=== PATIENT | female | born 1955 | race African-American/Black ===

== ENCOUNTER 2021-03-08 06:37 | Observation (INO) | payer MEDICAID, MEDICARE, OTHER ==
[~2021-03-08] VITALS: Ht 162.6 cm; Wt 59.6 kg
[2021-03-08] MEDS ORDERED: ASPIRIN CHEWABLE 81 MG TABLET. PO ONE (07:00)
[2021-03-08] MEDS ORDERED: IV NORMAL SALINE 1,000ML 1,000 ML IV ONE (07:00)
[2021-03-08] MEDS ORDERED: MECLIZINE 12.5 MG TABLET. PO ONE (07:00)
[2021-03-08] MEDS ORDERED: ASPIRIN 325 MG TABLET PO ONE (07:30)
[2021-03-08 07:32] LABS: BASO % 1 % (0-3); EOS # 0.2 x10^3/uL (0.0-0.7); EOS % 3 % (0-3); HEMATOCRIT 38.2 % (36.0-47.0); HEMOGLOBIN 12.4 g/dL (12.0-15.5); LYMPH # 2.3 x10^3/uL (1.0-4.8); LYMPH % 35 % (24-48); MEAN CORPUSCULAR HEMOGLOBIN 27 pg (25-35); MEAN CORPUSCULAR HGB CONC 32 g/dL (31-37); MEAN CORPUSCULAR VOLUME 82 fL (79-100); MONO # 0.7 x10^3/uL (0.0-1.1); MONO % 10 % (0-9); NEUT # 3.4 x10^3uL (1.8-7.7); NEUT % 51 % (31-73); PLATELET COUNT 122 x10^3/uL (140-400); POTASSIUM ISTAT 3.6 mmol/L (3.5-5.0); RED BLOOD COUNT 4.64 x10^6/uL (3.50-5.40); RED CELL DISTRIBUTION WIDTH 15.5 % (11.5-14.5); WHITE BLOOD COUNT 6.6 x10^3/uL (4.0-11.0)
[2021-03-08 07:33] LABS: HEMOGLOBIN ISTAT 13.3 gm/dL
--- NOTE | 2021-03-08 07:37 | RAD ---
EXAMINATION: Chest radiograph. VIEWS: Single AP view COMPARISON: None INDICATION:65 years, Female, chest pain. FINDINGS: Normal cardiomediastinal silhouette. No focal consolidation. No pleural effusion or pneumothorax. No acute osseous process. IMPRESSION: No acute cardiopulmonary process. Electronically signed by: Yenifer Tejeda MD (03/08/2021 7:34 AM) [facility]
--- NOTE | 2021-03-08 08:11 | PHYS DOC ---
Past History Past Medical History: DVT, High Cholesterol, Hypertension, Other Additional Past Medical Histor: DVT right leg, vertigo Past Surgical History: Hysterectomy, Other Additional Past Surgical Histo: partial hysterectomy, carotid endarterectomy, stent RLE Smoking: Cigarettes, Less than 1pk/day Alcohol Use: Occasionally Drug Use: Marijuana General Adult EDM: Chief Complaint: CHEST PAIN HPI: HPI: 65-year-old female presents via EMS with report of dizziness upon waking this morning. Patient reports sensation she was about to fall out of the bed. Reports the room was spinning. Reports history of prior vertigo but has been several years since she has had any episodes. Patient reports subsequent left chest tightness/discomfort. Patient does have some cardiac risk factors of smoking, high blood pressure, and high cholesterol. Patient does report she takes a baby aspirin daily which she did take this morning. Denies any fever or chills. Denies headache. Reports some associated nausea. Patient reports symptoms have since improved. Review of Systems: Review of Systems: Constitutional: Denies fever or chills Eyes: Denies redness or eye pain HENT: Denies nasal congestion or sore throat Respiratory: Denies cough or shortness of breath Cardiovascular: Denies palpitations; reports left-sided chest discomfort/tightness GI: Denies abdominal pain or vomiting; reports nausea : Denies dysuria or hematuria Musculoskeletal: Denies back pain or joint pain Integument: Denies rash or skin lesions Neurologic: Denies headache, focal weakness or sensory changes; reports dizziness Complete systems were reviewed and found to be within normal limits, except as documented in this note. Current Medications: Current Meds: Current Medications Medications (Trade) Dose Ordered Sig/[facility] Start Time Stop Time Status Last Admin Dose Admin Aspirin (Aspirin Chewable) 243 mg 1X ONCE 03/08/21 07:00 03/08/21 07:05 DC 03/08/21 07:10 243 MG Aspirin (Shazia Aspirin) 325 mg 1X ONCE 03/08/21 07:30 03/08/21 06:58 DC Meclizine HCl (Antivert) 25 mg 1X ONCE 03/08/21 07:00 03/08/21 07:05 DC 03/08/21 07:17 25 MG Sodium Chloride 1,000 ml @ 1,000 mls/hr 1X ONCE 03/08/21 07:00 03/08/21 08:00 DC 03/08/21 07:17 1,000 MLS/HR Allergies: Allergies: Allergies Coded Allergies Type Severity Reaction Last Updated Verified diphenhydramine Allergy Intermediate 03/08/21 Yes Physical Exam: PE: Constitutional: Well developed, well nourished, no acute distress, non-toxic aditi earance HENT: Normocephalic, atraumatic Eyes: PERRL, EOMI, conjunctiva normal, no discharge, no nystagmus noted Neck: Normal range of motion, no tenderness, supple Lungs & Thorax: No respiratory distress, equal chest rise and fall Abdomen: Soft, no tenderness Skin: Warm, dry, no erythema, no rash Back: No tenderness, no CVA tenderness Extremities: No tenderness, ROM intact, no edema Neurologic: Alert and oriented X 3, normal motor function, normal sensory function, no focal deficits noted Psychologic: Affect normal, judgment normal Current Patient Data: Labs: Laboratory Tests Test 03/08/21 07:05 White Blood Count 6.6 x10^3/uL (4.0-11.0) Red Blood Count 4.64 x10^6/uL (3.50-5.40) Hemoglobin 12.4 g/dL (12.0-15.5) POC Hemoglobin 13.3 gm/dL Hematocrit 38.2 % (36.0-47.0) POC Hematocrit 39 % Mean Corpuscular Volume 82 fL (79-100) Mean Corpuscular Hemoglobin 27 pg (25-35) Mean Corpuscular Hemoglobin Concent 32 g/dL (31-37) Red Cell Distribution Width 15.5 % (11.5-14.5) H Platelet Count 122 x10^3/uL (140-400) L Neutrophils (%) (Auto) 51 % (31-73) Lymphocytes (%) (Auto) 35 % (24-48) Monocytes (%) (Auto) 10 % (0-9) H Eosinophils (%) (Auto) 3 % (0-3) Basophils (%) (Auto) 1 % (0-3) Neutrophils # (Auto) 3.4 x10^3uL (1.8-7.7) Lymphocytes # (Auto) 2.3 x10^3/uL (1.0-4.8) Monocytes # (Auto) 0.7 x10^3/uL (0.0-1.1) Eosinophils # (Auto) 0.2 x10^3/uL (0.0-0.7) Basophils # (Auto) 0.0 x10^3/uL (0.0-0.2) POC Sodium 143 mmol/L (135-145) POC Potassium 3.6 mmol/L (3.5-5.0) POC Chloride 105 mmol/L (98-110) POC Total CO2 24 mmol/L (23-32) Anion Gap 19 mmol/L (6-14) H POC Blood Urea Nitrogen 11 mg/dL (8-26) POC Creatinine 0.6 mg/dL (0.5-1.4) Glucose Level 97 mg/dL (60-99) POC Ionized Calcium (Jacey) 1.22 mmol/L (1.13-1.32) POC Troponin I 0.00 ng/ml (<0.08) Vital Signs: Vital Signs Date Time Temp Pulse Resp B/P (MAP) Pulse Ox O2 Delivery O2 Flow Rate FiO2 03/08/21 06:39 97.9 45 18 151/73 (99) 99 Room Air EKG: EKG: @0641 Sinus bradycardia at 45bpm, NO ST elevation, QRS 78ms, QT/QTc 452/393ms, nonspecific t wave inversion III, aVF, and V3-V6 @0746 Sinus bradycardia at 47bpm, NO ST elevation, QRS 80ms, QT/QTc 498/441ms, nonspecific t wave inversion III, aVF, and V3-V6 Radiology/Procedures: Radiology/Procedures: PROCEDURE: CHEST AP ONLY EXAMINATION: Chest radiograph. VIEWS: Single AP view COMPARISON: None INDICATION:65 years, Female, chest pain. FINDINGS: Normal cardiomediastinal silhouette. No focal consolidation. No pleural effusion or pneumothorax. No acute osseous process. IMPRESSION: No acute cardiopulmonary process. Electronically signed by: Yenifer Tejeda MD (03/08/2021 7:34 AM) [facility] Heart Score: C/O Chest Pain: Yes HEART Score for Chest Pain: HEART Score for Chest Pain Response (Comments) Value History Moderately Suspicious 1 ECG Normal 0 Age >45 - < 65 1 Risk Factors >3 Risk Factors or Hx CAD 2 Troponin < Normal Limit 0 Total 4 Risk Factors: Risk Factors: DM, Current or recent (<one month) smoker, HTN, HLP, family history of CAD, obesity. Risk Scores: Score 0 - 3: 2.5% MACE over next 6 weeks - Discharge Home Score 4 - 6: 20.3% MACE over next 6 weeks - Admit for Clinical Observation Score 7 - 10: 72.7% MACE over next 6 weeks - Early Invasive Strategies Course & Med Decision Making: Course & Med Decision Making Pertinent Labs and Imaging studies reviewed. (See chart for details) Patient presents with dizziness which started upon waking this morning. Patient does have a history of vertigo. Symptoms do appear vertiginous in nature however no horizontal nystagmus noted upon patient's arrival to the ER. Trialed meclizine without significant improvement. Patient had also complained of some left sided chest discomfort. Patient does have some cardiac risk factors. EKG x2 with sinus bradycardia. Patient reports that is her normal. Patient neurologically intact. Labs obtained and posted to chart. Initial troponin within normal limits. H&H stable. Patient reports continued dizziness despite use of meclizine. NIHSS 0. HEART score 4. Patient requiring admission for further evaluation and treatment. Discussed with Dr. Diop (hospitalist) who is in agreement with admission to [facility]. Requests consult orders for cardiology and neurology. Discussed findings and plan with patient, who acknowledges understanding and agreement. Jimmy Disclaimer: Jimmy Disclaimer: This electronic medical record was generated, in whole or in part, using a voice recognition dictation system. Departure Departure: Impression: Primary Impression: Dizziness Additional Impression: Chest pain Qualified Codes: R07.9 - Chest pain, unspecified Disposition: ADMITTED INPATIENT Admitting Physician: Maciej Diop Condition: STABLE Referrals: FANNY SHARMA (PCP) NIHSS - ED NIH Stroke Scale: NIH Stroke Scale Response (Comments) Value Level of Consciousness: 0 Alert/Responsive 0 LOC Questions: 0 Answers both correctly 0 LOC Commands: 0 Performs both tasks 0 Best Gaze: 0 Normal 0 Visual: 0 No visual loss 0 Facial Palsy: 0 Normal, symmetrical 0 Motor - Left Arm 0 No drift 0 Motor - Right Arm 0 No drift 0 Motor - Left Leg 0 No drift 0 Motor: Right Leg 0 No drift 0 Limb Ataxia: 0 Absent 0 Sensory: 0 No loss 0 Best Language: 0 Normal 0 Dysathria: 0 Normal 0 Extinction and Inattention: 0 Normal 0 Total 0 ALVAREZHELDER DO Mar 08, 2021 08:11
[2021-03-08 08:24] LABS: BILIRUBIN,URINE NEG (NEG); CLARITY,URINE CLEAR; COLOR,URINE STRAW; GLUCOSE,URINE NEG (NEG)
[2021-03-08 08:25] LABS: BACTERIA,URINE 0 /HPF (0-FEW); NITRITE,URINE NEG (NEG); RBC,URINE 0 /HPF (0-2); SQUAMOUS EPITHELIAL CELL,UR MOD /LPF; UROBILINOGEN,URINE 0.2 mg/dL (0.2 mg/dL)
[2021-03-08] MEDS ORDERED: diazePAM 2 MG TABLET. PO ONE (08:30)
[2021-03-08] MEDS ORDERED: ONDANSETRON PF 4 MG/2 ML VIAL. IVP PRN (08:30)
[2021-03-08 09:42] VITALS: BP 148/80
--- NOTE | 2021-03-08 09:44 | PDOC2 ---
CARDIAC CONSULT DATE OF CONSULT DOS: DATE: 03/08/21 TIME: 09:41 REASON FOR CONSULT Reason for Consult Chest pain REFERRING PHYSICIAN Referring Physician Dr. Mendez SOURCE Source: Chart review, Patient HPI History of Present Illness This is a 65 yo male who presented secondary to dizziness, lightheadedness. Patient reports this began when she woke up this morning. [place] as if she could fall out of bed. Associated with slight nausea. No dizziness, diaphoresis, or shortness of breath. Had brief aching in left chest. Symptoms persisted so she came to the ED for further evaluation and treatment. Has a history of vertigo years ago. Reports symptoms to be similar. Worse with turned head either direction. No recent fevers or illness. Noted to be bradycardic in ED, which prompted this consult. Reports known h/o bradycardia for years. Has worn heart monitor in past. Follow with wood casket assembler at [place]. Had heart cath without intervention a couple of years ago. Additional h/o PAD s/p PROFESSIONAL WRESTLER/stent to RLE. Also carotid disease s/p right carotid endarterectomy. PAST MEDICAL HISTORY Cardiovascular: HTN, hyperipidemia, Other (vertigo, PAD, carotid disease) CENTRAL NERVOUS SYSTEM: CVA Heme/Onc: Other (DVT) PAST SURGICAL HISTORY Past Surgical History: Hysterectomy, Other (PROFESSIONAL WRESTLER/stent to RLE, right carotid endarterectomy ) FAMILY HISTORY Family History: Diabetes, Hypertension SOCIAL HISTORY Smoke: <1 pack per day ALCOHOL: rare Drugs: Marijuana Lives: with Family CURRENT MEDICATIONS Current Medications Current Medications Aspirin (Shazia Aspirin) 325 mg 1X ONCE PO ; Start 03/08/21 at 07:30; Stop 03/08/21 at 06:58; Status DC Sodium Chloride 1,000 ml @ 1,000 mls/hr 1X ONCE IV Last administered on 03/08/21at 07:17; Start 03/08/21 at 07:00; Stop 03/08/21 at 08:00; Status DC Aspirin (Aspirin Chewable) 243 mg 1X ONCE PO Last administered on 03/08/21at 07:10; Start 03/08/21 at 07:00; Stop 03/08/21 at 07:05; Status DC Meclizine HCl (Antivert) 25 mg 1X ONCE PO Last administered on 03/08/21at 07:17; Start 03/08/21 at 07:00; Stop 03/08/21 at 07:05; Status DC Diazepam (Valium) 2 mg 1X ONCE PO Last administered on 03/08/21at 08:37; Start 03/08/21 at 08:30; Stop 03/08/21 at 08:31; Status DC Ondansetron HCl (Zofran) 4 mg PRN Q4HRS PRN IVP NAUSEA/VOMITING; Start 03/08/21 at 08:30; Stop 03/09/21 at 08:29 ALLERGIES Allergies: Coded Allergies: diphenhydramine (Verified Allergy, Intermediate, 03/08/21) ROS Review of Systems 14 point ROS conducted with pertinent positives noted above in HPI PHYSICAL EXAM General: Alert, Oriented X3, Cooperative, No acute distress HEENT: Atraumatic Lungs: Clear to auscultation Heart: Regular rate (SR/SB/SA) Abdomen: Soft Extremities: No edema, Normal pulses Skin: No rashes, No breakdown Neuro: Normal speech, Sensation intact Psych/Mental Status: Mental status NL, Mood NL MUSCULOSKELETAL: Osteoarthritic changes both hands VITALS Vital Signs Vital Signs Date Time Temp Pulse Resp B/P (MAP) Pulse Ox O2 Delivery O2 Flow Rate FiO2 03/08/21 06:39 97.9 45 18 151/73 (99) 99 Room Air LABS LABS Laboratory Tests Test 03/08/21 06:37 03/08/21 07:05 Urine Collection Type Unknown Urine Color Straw Urine Clarity Clear Urine pH 7.0 Urine Specific [place] <=1.005 Urine Protein Neg (NEG-TRACE) Urine Glucose (UA) Neg mg/dL (NEG) Urine Ketones (Stick) Neg mg/dL (NEG) Urine Blood Small (NEG) Urine Nitrite Neg (NEG) Urine Bilirubin Neg (NEG) Urine Urobilinogen Dipstick 0.2 mg/dL (0.2 mg/dL) Urine Leukocyte Esterase Mod (NEG) Urine RBC 0 /HPF (0-2) Urine WBC 1-4 /HPF (0-4) Urine Squamous Epithelial Cells Mod /LPF Urine Bacteria 0 /HPF (0-FEW) White Blood Count 6.6 x10^3/uL (4.0-11.0) Red Blood Count 4.64 x10^6/uL (3.50-5.40) Hemoglobin 12.4 g/dL (12.0-15.5) Bedside Hemoglobin 13.3 gm/dL Hematocrit 38.2 % (36.0-47.0) Bedside Hematocrit 39 % Mean Corpuscular Volume 82 fL (79-100) Mean Corpuscular Hemoglobin 27 pg (25-35) Mean Corpuscular Hemoglobin Concent 32 g/dL (31-37) Red Cell Distribution Width 15.5 % (11.5-14.5) Platelet Count 122 x10^3/uL (140-400) Neutrophils (%) (Auto) 51 % (31-73) Lymphocytes (%) (Auto) 35 % (24-48) Monocytes (%) (Auto) 10 % (0-9) Eosinophils (%) (Auto) 3 % (0-3) Basophils (%) (Auto) 1 % (0-3) Neutrophils # (Auto) 3.4 x10^3uL (1.8-7.7) Lymphocytes # (Auto) 2.3 x10^3/uL (1.0-4.8) Monocytes # (Auto) 0.7 x10^3/uL (0.0-1.1) Eosinophils # (Auto) 0.2 x10^3/uL (0.0-0.7) Basophils # (Auto) 0.0 x10^3/uL (0.0-0.2) Bedside Sodium 143 mmol/L (135-145) Bedside Potassium 3.6 mmol/L (3.5-5.0) Bedside Chloride 105 mmol/L (98-110) Bedside Total CO2 24 mmol/L (23-32) Anion Gap 19 mmol/L (6-14) Bedside Blood Urea Nitrogen 11 mg/dL (8-26) Bedside Creatinine 0.6 mg/dL (0.5-1.4) Glucose Level 97 mg/dL (60-99) Bedside Ionized Calcium (Jacey) 1.22 mmol/L (1.13-1.32) Bedside Troponin I 0.00 ng/ml (<0.08) ASSESSMENT/PLAN Assessment/Plan 1. Dizziness, vertigo. worsened with turning head. No syncope. Orthos negative 2. Sinus bradycardia; known history. Had previous event monitor x2. Lowest 40. No pauses 3. Chest pain, atypical. Initial trop negative. Reports clean heart cath 2 years ago at [facility] 4. PAD s/p PROFESSIONAL WRESTLER/stent to RLE. Follow with [facility] cardiology, Dr. Altamirano 5. Carotid disease s/p right carotid endarterectomy. 6. H/o CVA prior to endarterectomy 7. Hypertension; controlled 8. Hyperlipidemia; statin Recommendations Monitor tele Avoid AV humberto clocking agents TSH Resume secondary prevention measures Obtain records from primary wood casket assembler. Further pending above Supportive care KIAN VARGAS APRN Mar 08, 2021 09:44
[2021-03-08] MEDS ORDERED: ASPI-630 PO (10:01)
[2021-03-08] MEDS ORDERED: CLOP75TA57 PO (10:01)
[2021-03-08 10:08] LABS: ALBUMIN 4.1 g/dL (3.4-5.0); ALBUMIN/GLOBULIN RATIO 1.2 (1.0-1.7); CALCIUM 9.4 mg/dL (8.5-10.1); CREATININE 0.6 mg/dL (0.6-1.0); GFR 122.2; TOTAL BILIRUBIN 0.8 mg/dL (0.2-1.0); TOTAL PROTEIN 7.5 g/dL (6.4-8.2)
[2021-03-08 10:09] LABS: POTASSIUM 3.7 mmol/L (3.5-5.1)
[2021-03-08 10:15] LABS: MAGNESIUM 2.3 mg/dL (1.8-2.4)
[2021-03-08] MEDS ORDERED: CRESTOR20 MG PO (10:33)
[2021-03-08] MEDS ORDERED: AMLO-186 PO (10:33)
[2021-03-08 10:53] LABS: THYROID STIM HORMONE (TSH) 1.566 uIU/mL (0.358-3.740)
[2021-03-08] MEDS ORDERED: amLODIPine BESYLATE 5 MG TABLET PO SCH (14:00)
[2021-03-08] MEDS ORDERED: CLOPIDOGREL BISULFATE 75 MG TABLET PO SCH (14:00)
[2021-03-08] MEDS ORDERED: ASPIRIN CHEWABLE 81 MG TABLET. PO SCH (14:00)
[2021-03-08] MEDS ORDERED: ATORVASTATIN CALCIUM 20 MG TABLET PO SCH (14:00)
--- NOTE | 2021-03-08 14:36 | HP ---
ADMIT DATE: 03/08/2021 HISTORY OF PRESENT ILLNESS: The patient is a 65-year-old -[place] female patient who came to the emergency room complaining of dizziness upon awakening this morning. She also reports sensation that she was about to fall out of the bed. Reports the room was spinning. Reports history of prior vertigo, but has been several years since she last had any episode. The patient reports subsequent left-sided chest tightness, discomfort. The patient does have some cardiac risk factors including smoking, high blood pressure, high cholesterol. She does report she takes a baby aspirin daily for which she did take this morning. Denied any fevers or chills. Denied any headache. Denied any diplopia, tingling, numbness or weakness. She reported her symptoms have some improvement by the time she arrived to the emergency room. She was extensively investigated in the emergency room, has had EKG which showed that she was in sinus bradycardia with a heart rate of 45 beats per minute with no ST segment elevation. Her QRS duration was 78 milliseconds, corrected QT interval was 393. She had T-wave inversion in lead III, aVF and V3 to V6. Her chest x-ray showed normal cardiomediastinal silhouette. No focal consolidation. No pleural effusion or pneumothorax. No acute osseous process. She had had lab work done that included CBC which was unremarkable with normal white cell count, hemoglobin, hematocrit and thrombocytopenia with a platelet count of 122,000. Her chemistry was mostly unremarkable. She had 1 set of troponin, but all her other lab works were within normal range. Her lipase was only 47 and TSH was 1.566. Urinalysis was essentially unremarkable. The patient was admitted with vertigo as well as chest pain. My plan is to do 2 more sets of cardiac enzymes, check her fasting lipid profile, consult the Cardiology team as well as Neurology together with physical and occupational therapy. PAST MEDICAL HISTORY: Significant for hypertension, right carotid artery stenosis, right femoral artery stenosis, history of DVT, hyperlipidemia and multiple TIAs before her carotid artery endarterectomy. PAST SURGICAL HISTORY: Significant for right carotid endarterectomy, right femoral artery stent deployment. She has total abdominal hysterectomy. ALLERGIES: SHE IS ALLERGIC TO DIPHENHYDRAMINE. MEDICATIONS: She is currently on the following medications: She is on Plavix 75 mg once a day, amlodipine 5 mg once a day, aspirin 81 mg once a day and Crestor 20 mg once a day. FAMILY HISTORY: She has 1 sister who is alive and has hypertension and hepatitis C. Three brothers, the youngest brother has coronary artery bypass graft surgery. Her father in his 50s due to myocardial infarction and mother at the age of 63 because of complication of peripheral arterial disease. SOCIAL HISTORY: She is , has a son and a daughter. She smokes on and off, drinks alcohol on and off and smokes marijuana every night at nighttime for her to sleep. She is a retired RV SERVICER. REVIEW OF SYSTEMS: The patient denied any blurring of vision, cataracts, glaucoma or macular degeneration. Denied any earache, tinnitus or sensorineural deafness. Denied any sore throat, sore tongue, toothache, hoarseness of voice or difficulty swallowing. Denied any nausea, vomiting, diarrhea or constipation. Denied any hematemesis, melena or hematochezia. Denied any dysuria, frequency or hematuria. Did have chest pain, but denied any nausea, vomiting, diaphoresis or shortness of breath. PHYSICAL EXAMINATION: GENERAL: On arrival to the emergency room, she looked well and was clearly in no apparent distress. There was no pallor, jaundice, cyanosis or thyromegaly. No jugular distention. No lower limb edema. VITAL SIGNS: Her heart rate was 45, blood pressure 151/73, temperature was 97.9, respiratory rate was 18 and oxygen saturation was 99% on room air. HEAD, EYES, EARS, NOSE AND THROAT: Normocephalic, atraumatic. NECK: Supple. HEART: Showed normal first and second heart sounds. No gallop, rub or murmur. CHEST: Clear to auscultation. No crepitation or rhonchi. ABDOMEN: Distended, soft, nontender. No guarding or rigidity. No organomegaly. All hernial orifices intact. Bowel sounds normal. NEUROLOGIC: She is awake, alert, responding appropriately. All her cranial nerves intact. She has no nystagmus. She moves all extremities without difficulty. She ambulates without assistance or assistive devices; however, she continues to have vertigo with things spinning around whenever she changes position in the bed, leaning forward or stand and walk to the bathroom. ASSESSMENT AND PLAN: My plan is to do 2 more sets of cardiac enzyme. We have already checked her lipid profile showed serum triglycerides of 88, total cholesterol 157, LDL cholesterol 67, VLDL was 17, HDL cholesterol of 73 and the ratio was 2. Her TSH was normal at 1.566. We have consulted the neurologist, trimmer operator three knife as well as physical and occupational therapist. LUCAS DR: Daphne TID: [id number]
[2021-03-08 14:58] VITALS: BP 114/61
--- NOTE | 2021-03-08 16:53 | CARD ---
MR#: [id number] Date of Study: 03/08/2021 Ordering Physician: KIAN VARGAS, Referring Physician: KIAN VARGAS, Tech: Nikki Pro, [facility] APPROVED REPORT EXAM: Two-dimensional and M-mode echocardiogram with Doppler and color Doppler. Other Information Quality : AverageHR: 45bpm INDICATION Chest Pain RISK FACTORS Hypertension Hyperlipidemia Smoking 2D DIMENSIONS Left Atrium(2D)2.5 (1.6-4.0cm)IVSd1.1 (0.7-1.1cm) Aortic Root(2D)2.8 (2.0-3.7cm)LVDd4.4 (3.9-5.9cm) LVOT Diameter1.9 (1.8-2.4cm)PWd1.1 (0.7-1.1cm) LVDs2.3 (2.5-4.0cm)FS (%) 48.0 % SV68.1 mlLVEF(%)79.7 (>50%) Aortic Valve AoV Peak Rafael.165.4cm/sAoV VTI33.6cm AO Peak GR.10.9mmHgLVOT Peak Rafael.127.6cm/s LVOT VTI 25.90cmAO Mean GR.5mmHg JESICA (VMAX)2.74ur1HLD (VTI)2.21cm2 Mitral Valve MV E Ubfbnvcy16.3cm/sMV DECEL CUTV282nj MV A Eptwhitu47.1cm/sE/A Ratio1.1 Pulmonary Valve PV Peak Vdznvaee77.8cm/sPV Peak Grad.3mmHg Tricuspid Valve TR P. Hxbwejog110xv/sRAP [id number] TR Peak Gr.22odQxYJXT12puQv LEFT VENTRICLE The left ventricle is normal size. There is mild concentric left ventricular hypertrophy. The left ve ntricular systolic function is normal and the ejection fraction is within normal range. The Ejection Fraction is 60-65%. There is normal LV segmental wall motion. The left ventricular diastolic function and filling is normal for age. RIGHT VENTRICLE The right ventricle is normal size. There is normal right ventricular wall thickness. The right ventr icular systolic function is normal. ATRIA The left atrium size is normal. The right atrium size is normal. The interatrial septum is intact wit h no evidence for an atrial septal defect or patent foramen ovale as noted on 2-D or Doppler imaging. AORTIC VALVE The aortic valve is normal in structure and function. Doppler and Color Flow revealed no significant aortic regurgitation. There is no significant aortic valvular stenosis. Calculated aortic valve area is 2.2 cm2 with maximum pressure gradient of 11 mmHg and mean pressure gradient of 5 mmHg. MITRAL VALVE The mitral valve is normal in structure and function. There is no evidence of mitral valve prolapse. There is no mitral valve stenosis. Doppler and Color-flow revealed trace mitral regurgitation. TRICUSPID VALVE The tricuspid valve is normal in structure and function. Doppler and Color Flow revealed trace tricus pid regurgitation with an estimated PAP of 33 mmHg. There is no tricuspid valve stenosis. PULMONIC VALVE The pulmonic valve is not well visualized. Doppler and Color Flow revealed trace pulmonic valvular re gurgitation. There is no pulmonic valvular stenosis. GREAT VESSELS The aortic root is normal in size. The IVC is normal in size and collapses >50% with inspiration. PERICARDIAL EFFUSION There is no evidence of significant pericardial effusion. Critical Notification Critical Value: No <Conclusion> The left ventricular systolic function is normal and the ejection fraction is within normal range. Th e Ejection Fraction is 60-65%. There is normal LV segmental wall motion. Signed by : Evan Macias, Electronically Approved : 03/08/2021 16:52:39
[2021-03-08 19:40] VITALS: BP 104/64
[2021-03-08 23:31] VITALS: BP 127/71
[2021-03-09 07:28] VITALS: BP 149/71
--- NOTE | 2021-03-09 08:50 | PDOC ---
CARDIO Progress Notes Date & Time Date of Service DATE: 03/09/21 TIME: 08:48 Time of Evaluation 08:48 Subjective Notes No chest pain, SOA. Dizziness improved. Vitals Vitals Vital Signs Date Time Temp Pulse Resp B/P (MAP) Pulse Ox O2 Delivery O2 Flow Rate FiO2 03/09/21 07:28 43 20 149/71 (97) 100 Room Air 03/08/21 23:31 97.8 Weight Weight [ ] Input and Output I.O. Intake and Output 03/09/21 07:00 Intake Total 1820 ml Balance 1820 ml Intake Oral 820 ml IV Total 1000 ml # Voids 2 Laboratory Labs Laboratory Tests Test 03/08/21 06:37 03/08/21 07:05 03/08/21 14:19 03/08/21 19:11 Urine Collection Type Unknown Urine Color Straw Urine Clarity Clear Urine pH 7.0 Urine Specific Pennock <=1.005 Urine Protein Neg (NEG-TRACE) Urine Glucose (UA) Neg mg/dL (NEG) Urine Ketones (Stick) Neg mg/dL (NEG) Urine Blood Small (NEG) Urine Nitrite Neg (NEG) Urine Bilirubin Neg (NEG) Urine Urobilinogen Dipstick 0.2 mg/dL (0.2 mg/dL) Urine Leukocyte Esterase Mod (NEG) Urine RBC 0 /HPF (0-2) Urine WBC 1-4 /HPF (0-4) Urine Squamous Epithelial Cells Mod /LPF Urine Bacteria 0 /HPF (0-FEW) White Blood Count 6.6 x10^3/uL (4.0-11.0) Red Blood Count 4.64 x10^6/uL (3.50-5.40) Hemoglobin 12.4 g/dL (12.0-15.5) Bedside Hemoglobin 13.3 gm/dL Hematocrit 38.2 % (36.0-47.0) Bedside Hematocrit 39 % Mean Corpuscular Volume 82 fL (79-100) Mean Corpuscular Hemoglobin 27 pg (25-35) Mean Corpuscular Hemoglobin Concent 32 g/dL (31-37) Red Cell Distribution Width 15.5 % (11.5-14.5) Platelet Count 122 x10^3/uL (140-400) Neutrophils (%) (Auto) 51 % (31-73) Lymphocytes (%) (Auto) 35 % (24-48) Monocytes (%) (Auto) 10 % (0-9) Eosinophils (%) (Auto) 3 % (0-3) Basophils (%) (Auto) 1 % (0-3) Neutrophils # (Auto) 3.4 x10^3uL (1.8-7.7) Lymphocytes # (Auto) 2.3 x10^3/uL (1.0-4.8) Monocytes # (Auto) 0.7 x10^3/uL (0.0-1.1) Eosinophils # (Auto) 0.2 x10^3/uL (0.0-0.7) Basophils # (Auto) 0.0 x10^3/uL (0.0-0.2) Bedside Sodium 143 mmol/L (135-145) Sodium Level 144 mmol/L (136-145) Bedside Potassium 3.6 mmol/L (3.5-5.0) Potassium Level 3.7 mmol/L (3.5-5.1) Bedside Chloride 105 mmol/L (98-110) Chloride Level 106 mmol/L (98-107) Carbon Dioxide Level 23 mmol/L (21-32) Bedside Total CO2 24 mmol/L (23-32) Anion Gap 19 mmol/L (6-14) Bedside Blood Urea Nitrogen 11 mg/dL (8-26) Blood Urea Nitrogen 11 mg/dL (7-20) Creatinine 0.6 mg/dL (0.6-1.0) Bedside Creatinine 0.6 mg/dL (0.5-1.4) Estimated GFR (Cockcroft-Gault) 122.2 BUN/Creatinine Ratio 18 (6-20) Glucose Level 97 mg/dL (60-99) Calcium Level 9.4 mg/dL (8.5-10.1) Bedside Ionized Calcium (Jacey) 1.22 mmol/L (1.13-1.32) Magnesium Level 2.3 mg/dL (1.8-2.4) Total Bilirubin 0.8 mg/dL (0.2-1.0) Aspartate Amino Transf (AST/SGOT) 27 U/L (15-37) Alanine Aminotransferase (ALT/SGPT) 38 U/L (14-59) Alkaline Phosphatase 77 U/L (46-116) Creatine Kinase 125 U/L (26-192) Creatine Kinase MB (Mass) 1.3 ng/mL (0.0-3.6) Creatine Kinase MB Relative Index 1.0 % (0-4) Bedside Troponin I 0.00 ng/ml (<0.08) < 0.02 ng/ml (<0.08) QB-Djp-T-Type Natriuretic Peptide 89 pg/mL (0-124) Total Protein 7.5 g/dL (6.4-8.2) Albumin 4.1 g/dL (3.4-5.0) Albumin/Globulin Ratio 1.2 (1.0-1.7) Triglycerides Level 88 mg/dL (0-150) Cholesterol Level 157 mg/dL (0-200) LDL Cholesterol, Calculated 67 mg/dL (0-100) VLDL Cholesterol, Calculated 17 mg/dL (0-40) Non-HDL Cholesterol Calculated 84 mg/dL (0-129) HDL Cholesterol 73 mg/dL (40-60) Cholesterol/HDL Ratio 2.0 Lipase 47 U/L (73-393) Thyroid Stimulating Hormone (TSH) 1.566 uIU/mL (0.358-3.740) Troponin I Quantitative < 0.017 ng/mL (0-0.055) Physical Exams Chest: Symmetric Lungs: Clear to Auscultation Heart: RRR (SR/SB) Abdomen: Soft N/T Extremities: No Edema Neurology: alert, oriented, follow commands Assessment Assessment 1. Dizziness, vertigo. worsened with turning head. No syncope. Orthos negative 2. Sinus bradycardia; known history. Had previous event monitor x2. Lowest 40. No pauses 3. Chest pain, atypical. trop series negative. AMI ruled out. Reports clean heart cath 2 years ago at [facility] [address]. Echo with preserved LV systolic function 4. PAD s/p COMB WINDER/stent to RLE. Follow with [facility] cardiology, Dr. Altamirano 5. Carotid disease s/p right carotid endarterectomy. 6. H/o CVA prior to endarterectomy 7. Hypertension; controlled 8. Hyperlipidemia; statin Recommendations Avoid AV humberto blocking agents Secondary prevention measures including ASA, Plavix, statin No OSH records obtained Outpatient event monitor. Will follow up with primary elementary summer school teacher upon discharge. Supportive care KIAN VARGAS APRN Mar 09, 2021 08:50
[2021-03-09] MEDS ORDERED: CLOPIDOGREL BISULFATE 75 MG TABLET PO SCH (09:00)
[2021-03-09] MEDS ORDERED: ASPIRIN CHEWABLE 81 MG TABLET. PO SCH (09:00)
[2021-03-09] MEDS ORDERED: ATORVASTATIN CALCIUM 20 MG TABLET PO SCH (09:00)
--- NOTE | 2021-03-09 09:32 | DS ---
DATE OF DISCHARGE: 03/09/2021 FINAL DISCHARGE DIAGNOSES: 1. Acute vertigo, resolved. 2. Chest pain, noncardiac. Myocardial ischemia ruled out. 3. Hypertension. 4. Hyperlipidemia. 5. History of deep venous thrombosis. 6. History of vertigo. 7. History of carotid endarterectomy. 8. History of peripheral artery disease with stents. HISTORY AND PHYSICAL: The patient is a 65-year-old female presenting with symptoms of dizziness and left-sided chest pain. She was admitted with vertigo and cardiac evaluation to rule out myocardial infarction. PHYSICAL EXAMINATION: Please see the dictated note. PERTINENT LABORATORY AND X-RAY STUDIES: Admission hemoglobin was 13.3 g/dL, white count 6600. Electrolytes within normal range. Creatinine is 0.6 mg/dL. Three sets of cardiac enzymes were negative for coronary ischemia. Cholesterol panel looks good at 157. TSH was normal. She had a 2D echocardiogram, which showed normal ejection fraction estimated at 65%, normal wall motion and function, no valvular abnormalities. COURSE IN THE HOSPITAL: The patient was admitted, kept at bed rest, vertigo symptoms resolved spontaneously. Home meds were continued including her aspirin and Plavix. Cardiology consultation was obtained. Echocardiogram was done and these were interpreted as normal. She did not have any coronary ischemia. Their recommendations on the chart. By the second hospital day, she was eating breakfast and nausea resolved, dizziness resolved and she was ready for discharge. At this time, reassurance that her echocardiogram and cardiac enzymes were within normal range and that her vertigo symptoms are transient and have improved spontaneously. There were no changes on her home meds. She will continue her amlodipine 5 mg daily, aspirin 81 mg a day, Plavix 75 mg daily and Crestor 20 mg daily. She will follow up with Dr. Edouard as scheduled time. The patient was then discharged from our hospital in stable condition with explicit drug and followup care. RAJNI DR: Layo TID: [id number] CC: Joan Edouard
--- NOTE | 2021-03-09 22:50 | CONS ---
DATE OF CONSULTATION: 03/08/2021 NEURO CONSULTATION REFERRING PHYSICIAN: Dr. Diop. CHIEF COMPLAINT: Acute onset of vertigo. HISTORY OF PRESENT ILLNESS: This is a 65-year-old right-handed -Spanish female was admitted through the Emergency Room after she presented with acute onset of dizziness described as a vertigo with symptoms of spinning of the room. The patient has intermittent nausea, but she denies vomiting, headaches, visual disturbances, chest pain, visual disturbances. The symptoms lasted 1-2 minutes produced by quick changes of her body positions or turning the head to any directions. She also complains of left-sided chest tightness described as discomfort. The patient denies dysphagia, dysarthria, weakness or paresthesia. On arrival to the Emergency Room, the patient was alert and oriented. She continued to have complaints of dizziness. Initial EKG showed the patient was in sinus bradycardia at mid 40s with ST segment elevation. The patient stated her dizziness has been slightly improved over time and now she is able to change her body position without any significant vertigo or other neurological symptoms. PAST MEDICAL HISTORY: Significant for hypertension, right carotid artery stenosis, right femoral artery stenosis, hyperlipidemia, TIAs. PAST SURGICAL HISTORY: Positive for right carotid endarterectomy and right femoral artery stent placement along with total abdominal hysterectomy. SOCIAL HISTORY: The patient is . She has 2 children. She smoked cigarettes and drinks alcohol occasionally. She also smoked marijuana. CURRENT HOME MEDICATIONS: Plavix 75 mg daily, amlodipine 5 mg daily, aspirin 81 mg daily, Crestor 20 mg daily. FAMILY HISTORY: Positive for hypertension, hepatitis C, strong family history of coronary artery disease in her brothers and one of them required a coronary artery bypass graft. Father at age of 52 from myocardial infarction. Mother at age of 63 from peripheral artery disease. ALLERGIES: DIPHENHYDRAMINE. REVIEW OF SYSTEMS: A 12-point review of system was performed as mentioned above in the history of present illness. PHYSICAL EXAMINATION: GENERAL: Well-developed, well-nourished -Spanish female in no acute distress. She weighs 59.6 pounds. VITAL SIGNS: Blood pressure 104/64, respiratory rate 18, temperature 98.5, pulse is 51, oxygen saturation 96% on room air. HEENT: Normocephalic and atraumatic, otherwise unremarkable. NECK: Supple. Negative for carotid bruit, lymphadenopathy or thyromegaly. LUNGS: Clear to A and P. HEART: Regular rate and rhythm, normal S1 and S2. There is no S3, S4 or murmur. ABDOMEN: Soft. Bowel sounds positive. EXTREMITIES: Negative for cyanosis, clubbing or pedal edema. NEUROLOGIC: Mental status: The patient is alert and oriented x 3. Speech is fluent. There is no language dysfunction. Memory, judgment and abstracting thinkings are normal. The patient denies hallucination or delusion. Cranial nerves: Visual hall are full. The pupils are reactive to light and accommodation. Extraocular movements are intact. There is no nystagmus. There is no facial motor or sensory deficits. Hearing is intact bilaterally. The palate is elevated symmetrically. Sternocleidomastoid muscles are powerful bilaterally. The patient shrugs her shoulders symmetrically, protrudes her tongue in the midline without fasciculation or atrophy. Motor: No focal muscle bulk wasting. The tone is normal. The strength is 5/5 throughout. Sensory examination revealed normal pinprick, light touch, vibratory and position senses. Deep tendon reflexes were symmetric and active without pathologic responses. Gait and coordination are normal. LABORATORY DATA: CBC was unremarkable. Chemistry revealed a complete normal metabolic panel. Diagnostic x-ray revealed no acute cardiopulmonary process. IMPRESSION: 1. Acute onset of vertigo induced by quick changes of body positions or turning head to any directions, which has improved over time with normal current neurological examination. 2. Multiple medical problems and transient ischemic attack risk factor includes right carotid artery stenosis requiring endarterectomy, hypertension, hyperlipidemia and smoking. RECOMMENDATIONS: 1. Continue with current management initiated by Dr. Diop. 2. Agree with Cardiology consult for elevated ST segments. 3. Vestibular exercise may alleviate her symptoms, if it becomes recurrent. STEPHY/RAFA DR: STEPHY/deysi TID: [id number]
--- NOTE | 2021-03-10 05:43 | PN ---
SUBJECTIVE: The patient denies any new medical or neurological complaints. She denies dizziness. She eats and drinks well. She walks fine, no problem, with vertigo this morning. OBJECTIVE: GENERAL: Well-developed, well-nourished -Kos[place] female, not in acute distress. VITAL SIGNS: Blood pressure 149/71, respiratory rate 20, pulse is 43, oxygen saturation is 100% on room air and temperature 97.8. HEENT: Normocephalic, atraumatic, otherwise unremarkable. NECK: Supple, negative for carotid bruit, lymphadenopathy or thyromegaly. LUNGS: Clear to A and P. CARDIOVASCULAR: Regular rhythm. Normal S1, S2. There is no S3, S4 or murmur. ABDOMEN: Soft. Bowel sounds positive. No palpable mass, organomegaly, or tenderness. EXTREMITIES: Negative for cyanosis, clubbing or pedal edema. NEUROLOGIC: Normal mental status and intact cranial nerves. There is no focal motor or sensory deficits. Deep tendon reflexes were asymmetric and active without pathologic responses. Gait and coordinations are normal. LABORATORY DATA: CBC revealed white blood cells of 6600, hemoglobin 12.4, hematocrit 38.2, platelet count 122,000. Chemistry reveals sodium of 143, potassium 3.6, chloride 105, CO2 of 24, BUN 11, creatinine 3.6, glucose 97. Troponin level is 0. Lipid profile revealed normal triglyceride and cholesterol. Normal LDL and elevated HDL. Urinalysis is negative for urinary tract infection. IMPRESSION: 1. Acute onset of vertigo--resolved. No recurrence. 2. Sinus bradycardia, rule out cardiac arrhythmia with elevated ST segments. Cardiology is evaluating the patient. 3. Multiple risk factors of transient ischemic attack or stroke including previous history of transient ischemic attack, strong family history of coronary artery disease, hypertension, and smoking. RECOMMENDATION: Continue with current management initiated by Dr. Diop/Dr. Bonilla. Continue with recommendation initiated by cardiology. The patient may need a followup with car parker on outpatient basis and possibly Holter monitoring. The patient is neurologically stable and ready for discharge. STEPHY/RADHA/RYAN DR: Emilia TID: [id number]
--- NOTE | 2021-03-10 06:29 | EKG ---
[facility] ED [facility] [address] [place] [id number] Test Date: 2021-03-08 Test Time: 07:46:58 Pat Name: NASIR LUCAS Department: Room: Gender: F Manager Laundry: ABIGAIL : 1955 Requested By: HELDER ALVAREZ Order Number: [id number] Reading MD: Measurements Intervals Lyman Rate: 47 P: 60 FL: 174 QRS: 45 QRSD: 80 T: -1 QT: 498 QTc: 441 Interpretive Statements SINUS BRADYCARDIA OTHERWISE NORMAL ECG RI6.02 Compared to ECG 03/08/2021 06:41:15 T-wave abnormality no longer present
--- NOTE | 2021-03-10 23:22 | EKG ---
[address] [address] Test Date: 2021-03-08 Test Time: 06:41:15 Pat Name: NASIR LUCAS Department: Room: Gender: F Propagator: : 1955 Requested By: HELDER ALVAREZ Order Number: [id number] Reading MD: Measurements Intervals [place]akey Rate: 45 P: 54 OR: 170 QRS: 32 QRSD: 78 T: -28 QT: 452 QTc: 393 Interpretive Statements SINUS BRADYCARDIA T ABNORMALITY IN INFERIOR LEADS ABNORMAL ECG RI6.02 No previous ECG available for comparison
== END 2021-03-09 10:10 | disposition home or self-care (01) ==
LOC: ER 06:37 → INTOOBSV 08:26 → 1 SOUTH 08:26 → ER 09:23
PROVIDERS: ADMIT Internal Medicine; ATTEND Internal Medicine
DX: R42 Dizziness and giddiness (principal); R07.89 Other chest pain; I10 Essential (primary) hypertension; E78.5 Hyperlipidemia, unspecified; I65.29 Occlusion and stenosis of unspecified carotid artery; I73.9 Peripheral vascular disease, unspecified; F17.210 Nicotine dependence, cigarettes, uncomplicated; D69.6 Thrombocytopenia, unspecified; E78.00 Pure hypercholesterolemia, unspecified; F12.90 Cannabis use, unspecified, uncomplicated; I65.21 Occlusion and stenosis of right carotid artery; N90.3 Dysplasia of vulva, unspecified; R00.1 Bradycardia, unspecified; Z90.710 Acquired absence of both cervix and uterus; Z86.718 Personal history of other venous thrombosis and embolism; Z79.02 Long term (current) use of antithrombotics/antiplatelets; Z79.82 Long term (current) use of aspirin; Z79.899 Other long term (current) drug therapy; Z86.73 Personal history of transient ischemic attack (TIA), and cerebral infarction without residual deficits; Z90.711 Acquired absence of uterus with remaining cervical stump; Z98.62 Peripheral vascular angioplasty status; Z98.890 Other specified postprocedural states; Z95.1 Presence of aortocoronary bypass graft
CPT/HCPCS: 36415; 71045; 80047; 80053; 80061; 81001; 82553; 83690; 83735; 83880; 84443; 84484; 85025; 87086; 93005; 93306; 96360; 99285; 99406; G0378; J7030; G0379

== ENCOUNTER 2021-10-13 10:00 | Emergency (ER) | payer OTHER ==
[~2021-10-13] VITALS: Ht 162.6 cm; Wt 58.0 kg
[~2021-10-13 10:00] MED LIST: AMLO-186 PO; ASPI-630 PO; CLOP75TA57 PO; CRESTOR20 MG PO
[2021-10-13] MEDS ORDERED: IV NORMAL SALINE 1,000ML 1,000 ML IV ONE (10:45)
[2021-10-13 11:19] LABS: BASO # 0.1 x10^3/uL (0.0-0.2); BASO % 2 % (0-3); EOS % 1 % (0-3); HEMATOCRIT 41.5 % (36.0-47.0); HEMOGLOBIN 13.4 g/dL (12.0-15.5); LYMPH # 1.4 x10^3/uL (1.0-4.8); LYMPH % 37 % (24-48); MEAN CORPUSCULAR HEMOGLOBIN 26 pg (25-35); MEAN CORPUSCULAR HGB CONC 32 g/dL (31-37); MEAN CORPUSCULAR VOLUME 81 fL (79-100); MONO # 0.8 x10^3/uL (0.0-1.1); MONO % 22 % (0-9); NEUT # 1.4 x10^3uL (1.8-7.7); NEUT % 38 % (31-73); PLATELET COUNT 112 x10^3/uL (140-400); RED CELL DISTRIBUTION WIDTH 15.3 % (11.5-14.5); WHITE BLOOD COUNT 3.7 x10^3/uL (4.0-11.0)
[2021-10-13 11:28] LABS: CALCIUM 9.1 mg/dL (8.5-10.1); CREATININE 0.7 mg/dL (0.6-1.0); GFR 101.9; POTASSIUM 4.1 mmol/L (3.5-5.1)
--- NOTE | 2021-10-13 11:34 | RAD ---
Single view of the chest. 10/13/2021 10:40 AM Indication: Reason: Bradycardia / Spl. Instructions: / History: Comparison: Chest radiograph March 08, 2021 Findings: Cardiac monitoring device projects over the left heart. Heart size is normal. No pneumothor ax is seen. No pleural effusion is seen. No focal infiltrates are seen. Bony thorax is intact. Mild a ortic calcification noted. IMPRESSION: No radiographic evidence of acute cardiopulmonary process Electronically signed by: Christopher Alegre MD (10/13/2021 11:31 AM) [id number]
[2021-10-13 11:40] LABS: ALBUMIN/GLOBULIN RATIO 1.2 (1.0-1.7); MAGNESIUM 2.3 mg/dL (1.8-2.4); PHOSPHORUS 4.2 mg/dL (2.6-4.7); TOTAL BILIRUBIN 0.4 mg/dL (0.2-1.0); TOTAL PROTEIN 7.4 g/dL (6.4-8.2)
--- NOTE | 2021-10-13 11:46 | RAD ---
CT HEAD/BRAIN WO Date: 10/13/2021 10:40 AM Clinical Indication: Dizziness, headache Comparison: None. Technique: 5 mm axial tomographic images were obtained of the head without contrast. These were view ed on brain and bone windows. One or more of the following dose reduction techniques were utilized: A utomated exposure control (AEC), Adjustment of mA and/or kV according to patient size, Use of iterati ve reconstruction technique such as ASiR, CT scan done according to ALARA and image gently/image morocho ly Findings: Indeterminate hyperdense focus along the dorsal aspect of the cervicomedullary junction. The brain parenchyma is otherwise normal in attenuation. The ventricles are normal in size, shape, an d morphology. The majano-white matter junction is normal. The subarachnoid cisterns are patent. The visualized paranasal sinuses are normal. The visualized portions of the orbits and globes are no rmal. The mastoid air cells are clear. The systems analyst engineer topogram shows no lytic lesion or fracture. Impression: Indeterminate hyperdense focus along the dorsal aspect of the cervicomedullary junction, poorly abraham cterized by CT. Considerations would include intra-axial lesions such as cavernoma, extra-axial struc tures such as choroid plexus, or even a trace amount of acute blood products. Recommend further abraham cterization with contrast-enhanced MRI. Electronically signed by: Russell Fuentes MD (10/13/2021 11:44 AM) [id number]
--- NOTE | 2021-10-13 12:01 | PHYS DOC ---
Past History Past Medical History: DVT, High Cholesterol, Hypertension, Other Additional Past Medical Histor: DVT right leg, vertigo Past Surgical History: Hysterectomy, Other Additional Past Surgical Histo: partial hysterectomy, carotid endarterectomy, stent RLE Smoking: Cigarettes, Less than 1pk/day Alcohol Use: Occasionally Drug Use: Marijuana Adult General Chief Complaint Chief Complaint: HYPERTENSION HPI HPI Patient is a 66-year-old female who presents to the emergency department reporting concerns of high blood pressure today. Patient reports she woke up and took her blood pressure at 730 this morning and noted 207/80, patient reports she had some mild dizziness this morning however reports she has experienced similar dizziness in the past and was told this was vertigo. Patient reports intermittent headaches that have been going on for "quite some time ", reports a 5-6 out of 10 focusing on her right caodaism area, denies any headache at this time. Denies chest pains, chest palpitations, chest or nasal congestion, denies recent fever or chills. Patient does report a history of bradycardia with heart rates in the 30s and 40s, states she has a heart monitor placed by a tassel clipper from [facility] Dr. Aquino, reports she was told 3 weeks ago she requires a pacemaker however has not followed up for this procedure. Patient reports taking amlodipine, rosuvastatin, aspirin, and Plavix. Patient reports a past medical history of carotid endarterectomy, and arterial stent of right lower extremity approximately 2 to 4 years ago by a vascular surgeon at [facility]. Patient denies chest pain, chest discomfort, or chest palpitations, abdominal pain or abdominal discomfort. Denies nausea, vomiting, diarrhea, denies increased urinary frequency or other dysuria. Denies fever chills at home. Denies other physical complaints or physical concerns. Review of Systems Review of Systems Constitutional: Denies fever or chills [] Eyes: Denies change in visual acuity, redness, or eye pain [] HENT: Denies nasal congestion or sore throat [] Respiratory: Denies cough or shortness of breath [] Cardiovascular: No additional information not addressed in HPI [] GI: Denies abdominal pain, nausea, vomiting, bloody stools or diarrhea [] : Denies dysuria or hematuria [] Musculoskeletal: Denies back pain or joint pain [] Integument: Denies rash or skin lesions [] Neurologic: Denies headache, focal weakness or sensory changes [] Endocrine: Denies polyuria or polydipsia [] All other systems were reviewed and found to be within normal limits, except as documented in this note. Current Medications Current Medications Current Medications Medications (Trade) Dose Ordered Sig/Terra Start Time Stop Time Status Last Admin Dose Admin Sodium Chloride 1,000 ml @ 1,000 mls/hr 1X ONCE 10/13/21 10:45 10/13/21 11:44 DC 10/13/21 11:47 1,000 MLS/HR Allergies Allergies Allergies Coded Allergies Type Severity Reaction Last Updated Verified diphenhydramine Allergy Intermediate 10/13/21 Yes Physical Exam Physical Exam Constitutional: Well developed, well nourished, no acute distress, non-toxic appearance. 56-year-old female in no apparent distress. HENT: Normocephalic, atraumatic. Oropharynx moist, pink, no deep tissue infectious process appreciated, bilateral TMs within normal limits. Eyes: Conjunctiva normal, no discharge. Neck: Normal range of motion, no stridor. Cardiovascular: No cyanosis appreciated, distal cap refill less than 2 seconds. Heart rate bradycardic, rate 44 bpm, heart sounds S1-S2 to auscultation. No murmurs appreciated. Lungs & Thorax: Patient is in no respiratory distress, no audible adventitious lung sounds appreciated. Lung sounds clear to auscultation all lung hall. Abdomen: Nontender, no abnormalities noted. Skin: Warm, dry, no erythema, no rash. Back: No tenderness, no deformities. Extremities: No tenderness, no cyanosis, no clubbing, ROM intact, no edema. Neurologic: Alert and oriented X 3, normal motor function, normal sensory function, no focal deficits noted. Psychologic: Affect normal, judgement normal, mood normal. Current Patient Data Vital Signs Vital Signs Date Time Temp Pulse Resp B/P (MAP) Pulse Ox O2 Delivery O2 Flow Rate FiO2 10/13/21 10:10 98.2 42 21 132/68 (89) 99 Room Air Lab Results Laboratory Tests Test 10/13/21 10:27 10/13/21 10:55 Urine Collection Type Unknown Urine Color Straw Urine Clarity Clear Urine pH 6.5 Urine Specific Hoagland 1.010 Urine Protein Neg Urine Glucose (UA) Neg mg/dL Urine Ketones (Stick) Neg mg/dL Urine Blood Small Urine Nitrite Neg Urine Bilirubin Neg Urine Urobilinogen Dipstick 0.2 mg/dL Urine Leukocyte Esterase Mod Urine RBC 1-2 /HPF Urine WBC 1-4 /HPF Urine Squamous Epithelial Cells Many /LPF Urine Amorphous Sediment Present /HPF Urine Bacteria 0 /HPF White Blood Count 3.7 x10^3/uL Red Blood Count 5.10 x10^6/uL Hemoglobin 13.4 g/dL Hematocrit 41.5 % Mean Corpuscular Volume 81 fL Mean Corpuscular Hemoglobin 26 pg Mean Corpuscular Hemoglobin Concent 32 g/dL Red Cell Distribution Width 15.3 % Platelet Count 112 x10^3/uL Neutrophils (%) (Auto) 38 % Lymphocytes (%) (Auto) 37 % Monocytes (%) (Auto) 22 % Eosinophils (%) (Auto) 1 % Basophils (%) (Auto) 2 % Neutrophils # (Auto) 1.4 x10^3uL Lymphocytes # (Auto) 1.4 x10^3/uL Monocytes # (Auto) 0.8 x10^3/uL Eosinophils # (Auto) 0.0 x10^3/uL Basophils # (Auto) 0.1 x10^3/uL Platelet Estimate Adequate Large Platelets Present Giant Platelets Present Target Cells Present Tear Drop Cells Present Ovalocytes Present Sriram Cells Present Sodium Level 142 mmol/L Potassium Level 4.1 mmol/L Chloride Level 105 mmol/L Carbon Dioxide Level 25 mmol/L Anion Gap 12 Blood Urea Nitrogen 12 mg/dL Creatinine 0.7 mg/dL Estimated GFR (Cockcroft-Gault) 101.9 BUN/Creatinine Ratio 17 Glucose Level 87 mg/dL Calcium Level 9.1 mg/dL Phosphorus Level 4.2 mg/dL Magnesium Level 2.3 mg/dL Total Bilirubin 0.4 mg/dL Aspartate Amino Transf (AST/SGOT) 46 U/L Alanine Aminotransferase (ALT/SGPT) 66 U/L Alkaline Phosphatase 82 U/L Troponin I High Sensitivity 7 ng/L IL-Rbw-V-Type Natriuretic Peptide 74 pg/mL Total Protein 7.4 g/dL Albumin 4.0 g/dL Albumin/Globulin Ratio 1.2 Lipase 50 U/L Current Medications Medications (Trade) Dose Ordered Sig/Terra Route PRN Reason Start Time Stop Time Status Last Admin Dose Admin Sodium Chloride 1,000 ml @ 1,000 mls/hr 1X ONCE IV 10/13/21 10:45 10/13/21 11:44 DC 10/13/21 11:47 Laboratory Tests Test 10/13/21 10:55 Sodium Level 142 mmol/L (136-145) Potassium Level 4.1 mmol/L (3.5-5.1) Chloride Level 105 mmol/L (98-107) Carbon Dioxide Level 25 mmol/L (21-32) Anion Gap 12 (6-14) Blood Urea Nitrogen 12 mg/dL (7-20) Creatinine 0.7 mg/dL (0.6-1.0) Estimated GFR (Cockcroft-Gault) 101.9 BUN/Creatinine Ratio 17 (6-20) Glucose Level 87 mg/dL (70-99) Calcium Level 9.1 mg/dL (8.5-10.1) Phosphorus Level 4.2 mg/dL (2.6-4.7) Magnesium Level 2.3 mg/dL (1.8-2.4) Total Bilirubin 0.4 mg/dL (0.2-1.0) Aspartate Amino Transferase (AST) 46 U/L (15-37) H Alanine Aminotransferase (ALT) 66 U/L (14-59) H Alkaline Phosphatase 82 U/L (46-116) Troponin I High Sensitivity 7 ng/L (4-50) BX-Jhv-[id number]-Type Natriuretic Peptide 74 pg/mL (0-124) Total Protein 7.4 g/dL (6.4-8.2) Albumin 4.0 g/dL (3.4-5.0) Albumin/Globulin Ratio 1.2 (1.0-1.7) Lipase 50 U/L (73-393) L EKG EKG EKG performed at 1046 by house respiratory therapy staff shows a sinus bradycardia with inverted T wave in leads III and aVF, heart rate 40 bpm without other ectopy, UT interval 0.150, QTc interval 0.500, no acute STEMI appreciated, EKG interpreted by ED attending physician Dr. Patel. Radiology/Procedures Radiology/Procedures STATUS: REG ER ORD. PHYSICIAN: HELDER POLK APRN REASON: Bradycardia PROCEDURE: CHEST AP ONLY Single view of the chest. 10/13/2021 10:40 AM Indication: Reason: Bradycardia / Spl. Instructions: / History: Comparison: Chest radiograph March 08, 2021 Findings: Cardiac monitoring device projects over the left heart. Heart size is normal. No pneumothorax is seen. No pleural effusion is seen. No focal infiltrates are seen. Bony thorax is intact. Mild aortic calcification noted. IMPRESSION: No radiographic evidence of acute cardiopulmonary process Electronically signed by: Christopher Alegre MD (10/13/2021 11:31 AM) [id number] REASON: Dizziness, headache PROCEDURE: CT HEAD WO CONTRAST CT HEAD/BRAIN WO Date: 10/13/2021 10:40 AM Clinical Indication: Dizziness, headache Comparison: None. Technique: 5 mm axial tomographic images were obtained of the head without contrast. These were viewed on brain and bone windows. One or more of the following dose reduction techniques were utilized: Automated exposure control (AEC), Adjustment of mA and/or kV according to patient size, Use of iterative reconstruction technique such as ASiR, CT scan done according to ALARA and image gently/image wisely Findings: Indeterminate hyperdense focus along the dorsal aspect of the cervicomedullary junction. The brain parenchyma is otherwise normal in attenuation. The ventricles are normal in size, shape, and morphology. The majano-white matter junction is normal. The subarachnoid cisterns are patent. The visualized paranasal sinuses are normal. The visualized portions of the orbits and globes are normal. The mastoid air cells are clear. The outfitter cabin topogram shows no lytic lesion or fracture. Impression: Indeterminate hyperdense focus along the dorsal aspect of the cervicomedullary junction, poorly characterized by CT. Considerations would include intra-axial lesions such as cavernoma, extra-axial structures such as choroid plexus, or even a trace amount of acute blood products. Recommend further characterization with contrast-enhanced MRI. Electronically signed by: Russell Fuentes MD (10/13/2021 11:44 AM) [id number] Heart Score C/O Chest Pain: No Risk Factors: Risk Factors: DM, Current or recent (<one month) smoker, HTN, HLP, family history of CAD, obesity. Risk Scores: Risk Factors: DM, Current or recent (<one month) smoker, HTN, HLP, family history of CAD, obesity. Course & Med Decision Making Course & Med Decision Making Pertinent Labs and Imaging studies reviewed. (See chart for details) 66-year-old female, vital signs reviewed, presents to the emergency department concerning hypertension at home. Physical examination concerning for symptomatic bradycardia, the patient is experiencing dizziness, there is no nystagmus appreciated, will order CT head without contrast, chest x-ray, EKG, high-sensitivity troponin I, BNP pro NT, CBC, CMP, amylase. 1 L normal saline, urinalysis assay. Chest x-ray nonconcerning for acute process, the patient urine is not infected, there is hematuria, suspicious for contaminated urine catch. The patient's CT head concerning for intra-axial lesions versus acute blood products, recommended contrasted MRI. Discussed findings with patient, patient reports she is still experiencing some "slight dizziness "otherwise she reports she is feeling better. Recommended transfer to facility that can accommodate MRI and pacemaker placement if warranted. Patient states she has her cardiology doctors at [facility] and wishes to be transported to [facility]. Called and discussed patient case with [facility] transfer center Contract Project Manager Carina, who placed me in contact with excepting transferring physician Dr. Cortez and EP tassel clipper Dr. Allen, requested images to be placed on cloud. After images were placed on cloud, [facility] center called back, spoke with Contract Project Manager Carina who accepts patient in transfer for transferring physician Dr. Cortez, and neurology interventional radiologist Dr. Fidelia Souza to be transported to [facility] for emergent MRI of head with contrast. Patient remains hemodynamically stable, current blood pressure 140/85, heart rate 41 bpm, 99% on room air, remains nontoxic in appearance and in no apparent distress. EMTALA transfer forms reviewed and signed. Patient awaiting ambulance transfer to [facility]. Dragon Disclaimer Dragon Disclaimer This electronic medical record was generated, in whole or in part, using a voice recognition dictation system. Departure Departure: Impression: Primary Impression: Symptomatic bradycardia Additional Impressions: Abnormal CT scan, head Vertigo Hematuria Disposition: 02 [facility]ORT TERM [facility]OSP[facility] (Patient transferred to [facility] in [facility], accepting physician Dr. Cortez) Condition: GUARDED Referrals: FANNY SHARMA (PCP) Problem Qualifiers Additional Impressions: Hematuria Hematuria type: unspecified type Qualified Codes: R31.9 - Hematuria, unspecified HELDER POLK SECURITY BUSINESS ANALYST Oct 13, 2021 12:00
[2021-10-13 12:02] LABS: PLT ESTIMATE ADEQUATE (ADEQUATE)
[2021-10-13 12:03] LABS: BURR CELLS PRESENT; OVALOCYTES PRESENT; TARGET CELLS PRESENT
[2021-10-13 12:04] LABS: TEAR DROP CELLS PRESENT
[2021-10-13 12:06] LABS: AMORPHOUS SEDIMENT,UR PRESENT /HPF; BACTERIA,URINE 0 /HPF (0-FEW); BILIRUBIN,URINE NEG (NEG); CLARITY,URINE CLEAR; COLOR,URINE STRAW; GLUCOSE,URINE NEG (NEG); NITRITE,URINE NEG (NEG); SQUAMOUS EPITHELIAL CELL,UR MANY /LPF; UROBILINOGEN,URINE 0.2 mg/dL (0.2 mg/dL)
[2021-10-13 13:20] VITALS: BP 144/67
--- NOTE | 2021-10-14 03:15 | EKG ---
[address] [address] Test Date: 2021-10-13 Test Time: 10:46:39 Pat Name: NASIR LUCAS Department: Room: Gender: F Road Gang Supervisor: NEELIMA : 1955 Requested By: HELDER POLK Order Number: [id number] Reading MD: Lex Joel Measurements Intervals [place] Rate: 40 P: 52 WI: 150 QRS: 46 QRSD: 78 T: 6 QT: 610 QTc: 500 Interpretive Statements SINUS BRADYCARDIA T ABNORMALITY IN ANTERIOR LEADS INFERIOR LEADS PROLONGED QT ABNORMAL ECG Electronically Signed On 10-14-2021 13:00:56 BODY DESIGN CHECKER by Lex Joel
== END 2021-10-13 14:15 | disposition short-term general hospital (02) ==
LOC: ER 10:00
DX: R00.1 Bradycardia, unspecified (principal); R94.02 Abnormal brain scan; R42 Dizziness and giddiness; R31.9 Hematuria, unspecified; E78.00 Pure hypercholesterolemia, unspecified; I10 Essential (primary) hypertension; F17.210 Nicotine dependence, cigarettes, uncomplicated; Z86.718 Personal history of other venous thrombosis and embolism; Z88.8 Allergy status to other drugs, medicaments and biological substances
CPT/HCPCS: 36415; 70450; 71045; 80053; 81001; 83690; 83735; 83880; 84100; 84484; 85025; 87086; 93005; 96360; 99285; J7030